=== PATIENT | male | born 1940 | race Caucasian/White ===

== ENCOUNTER → 2023-11-26 09:23 | Outpatient (REF) | payer OTHER, SELFPAY ==
[2023-11-26 12:31] LABS: INR 3.15; PT 32.3 Sec (11.4-14.6)
== END ==
LOC: HWLAB 09:23
PROVIDERS: ATTENDING PHYSICIAN Family Medicine
DX: I27.82 Chronic pulmonary embolism (principal); D68.59 Other primary thrombophilia
CPT/HCPCS: 36415; 85610

== ENCOUNTER → 2023-12-24 09:54 | Outpatient (REF) | payer OTHER, SELFPAY ==
[2023-12-24 12:57] LABS: INR 2.63
== END ==
LOC: HWLAB 09:54
PROVIDERS: ATTENDING PHYSICIAN Family Medicine
DX: I27.82 Chronic pulmonary embolism (principal); D68.59 Other primary thrombophilia
CPT/HCPCS: 36415; 85610

== ENCOUNTER → 2024-02-04 09:40 | Outpatient (REF) | payer OTHER, SELFPAY ==
[2024-02-04 11:48] LABS: INR 2.82; PT 29.6 Sec (11.4-14.6)
== END ==
LOC: HWLAB 09:40
PROVIDERS: ATTENDING PHYSICIAN Family Medicine
DX: I27.82 Chronic pulmonary embolism (principal); D68.59 Other primary thrombophilia
CPT/HCPCS: 36415; 85610

== ENCOUNTER → 2024-03-17 09:20 | Outpatient (REF) | payer OTHER, SELFPAY ==
[2024-03-17 12:49] LABS: INR 2.87
== END ==
LOC: HWLAB 09:20
PROVIDERS: ATTENDING PHYSICIAN Family Medicine
DX: I27.82 Chronic pulmonary embolism (principal); D68.59 Other primary thrombophilia
CPT/HCPCS: 36415; 85610

== ENCOUNTER → 2024-04-29 09:02 | Outpatient (REF) | payer OTHER, SELFPAY ==
[2024-04-29 11:47] LABS: INR 2.37; PT 25.8 Sec (11.4-14.6)
== END ==
LOC: HWLAB 09:02
PROVIDERS: ATTENDING PHYSICIAN Family Medicine
DX: I27.82 Chronic pulmonary embolism (principal); D68.59 Other primary thrombophilia
CPT/HCPCS: 36415; 85610

== ENCOUNTER → 2024-06-16 10:44 | Outpatient (REF) | payer OTHER, SELFPAY ==
[2024-06-16 16:49] LABS: PT 27.7 Sec (11.4-14.6)
== END ==
LOC: HWLAB 10:44
PROVIDERS: ATTENDING PHYSICIAN Family Medicine
DX: I27.82 Chronic pulmonary embolism (principal); D68.59 Other primary thrombophilia
CPT/HCPCS: 36415; 85610

== ENCOUNTER → 2024-07-28 09:55 | Outpatient (REF) | payer OTHER, SELFPAY ==
[2024-07-28 12:12] LABS: INR 2.52; PT 27.2 Sec (11.4-14.6)
== END ==
LOC: HWLAB 09:55
PROVIDERS: ATTENDING PHYSICIAN Family Medicine
DX: I27.82 Chronic pulmonary embolism (principal); D68.59 Other primary thrombophilia
CPT/HCPCS: 36415; 85610

== ENCOUNTER → 2024-09-15 10:00 | Outpatient (REF) | payer OTHER, SELFPAY ==
[2024-09-15 12:00] LABS: INR 2.65; PT 28.3 Sec (11.4-14.6)
== END ==
LOC: HWLAB 10:00
PROVIDERS: ATTENDING PHYSICIAN Family Medicine
DX: D68.59 Other primary thrombophilia (principal)
CPT/HCPCS: 36415; 85610

== ENCOUNTER → 2024-12-02 08:55 | Outpatient (REF) | payer OTHER, SELFPAY ==
[2024-12-02 12:26] LABS: INR 2.48; PT 26.9 Sec (11.4-14.6)
== END ==
LOC: HWLAB 08:55
PROVIDERS: ATTENDING PHYSICIAN Family Medicine
DX: I27.82 Chronic pulmonary embolism (principal); D68.59 Other primary thrombophilia; C61 Malignant neoplasm of prostate; K21.9 Gastro-esophageal reflux disease without esophagitis
CPT/HCPCS: 36415; 85610

== ENCOUNTER → 2025-02-26 09:06 | Outpatient (REF) | payer OTHER, SELFPAY ==
[2025-02-26 12:55] LABS: INR 2.35; PT 26.2 Sec (11.4-14.6)
== END ==
LOC: HWLAB 09:06
PROVIDERS: ATTENDING PHYSICIAN Family Medicine
DX: I27.82 Chronic pulmonary embolism (principal); D68.59 Other primary thrombophilia; C61 Malignant neoplasm of prostate; K21.9 Gastro-esophageal reflux disease without esophagitis
CPT/HCPCS: 36415; 85610

== ENCOUNTER → 2025-06-23 08:54 | Outpatient (REF) | payer OTHER, SELFPAY ==
[2025-06-23 12:59] LABS: INR 2.05; PT 23.3 Sec (11.4-14.6)
== END ==
LOC: HWLAB 08:54
PROVIDERS: ATTENDING PHYSICIAN Family Medicine
DX: I27.82 Chronic pulmonary embolism (principal); D68.59 Other primary thrombophilia; K21.9 Gastro-esophageal reflux disease without esophagitis
CPT/HCPCS: 36415; 85610

== ENCOUNTER → 2025-08-11 09:58 | Outpatient (REF) | payer OTHER, SELFPAY ==
[2025-08-11 12:48] LABS: INR 2.09; PT 23.7 Sec (11.4-14.6)
== END ==
LOC: HWLAB 09:58
PROVIDERS: ATTENDING PHYSICIAN Family Medicine
DX: I27.82 Chronic pulmonary embolism (principal); D68.59 Other primary thrombophilia; K21.9 Gastro-esophageal reflux disease without esophagitis
CPT/HCPCS: 36415; 85610